=== PATIENT | male | born 1955 | race Caucasian/White ===

== ENCOUNTER 2019-12-20 11:46 | Inpatient (IN) | payer BC, SELFPAY ==
[2019-12-20] VITALS (7 sets, daily range): BP systolic 124–183; BP diastolic 67–90; PULSE 95–110; RESP 18–20; TEMP 37.2–38.5; O2SAT 94–100; BMI 36.8; BMI 36.7
--- NOTE | ~2019-12-20 | US_ITS ---
EXAMINATION:US venous doppler LE BI INDICATION:Swelling. TECHNIQUE: Multiple grayscale, color flow and Doppler images of the bilateral lower extremity deep ve nous systems were obtained and reviewed. COMPARISON:12/20/2019 FINDINGS: The common femoral, superficial femoral and popliteal veins demonstrate normal respiratory variation, augmentation and compressibility. Color flow is also seen within the posterior tibial, pe roneal, greater saphenous and profunda veins. IMPRESSION: 1: No lower extremity deep venous thrombosis. Reviewed, dictated and finalized at location A.
--- NOTE | ~2019-12-20 | US_ITS ---
EXAMINATION: US venous doppler LE RT DATE: 12/20/2019 14:19 INDICATION: Right lower limb pain and swelling TECHNIQUE: Mark scale images without and with compression and Doppler images of the right lower extre mity veins were obtained. COMPARISON: None FINDINGS: The right common femoral vein, profunda femoral vein, femoral vein, popliteal vein, posteri or tibial veins, and greater saphenous vein are patent. Only one of two peroneal veins is identified. IMPRESSION: 1. Only one of two peroneal veins identified which could be due to thrombus or nonvisualization. Reviewed, dictated and finalized at location B.
--- NOTE | 2019-12-20 13:46 | ED.GENADULT ---
HPI - General Adult General Chief complaint: Extremity Injury, Lower Stated complaint: Right Leg Cellulitis, Possible DVT Time Seen by Provider: 12/20/19 12:25 Source: patient and family Mode of arrival: ambulatory Limitations: no limitations History of Present Illness HPI narrative: 64 years old white male, morbidly obese presents with increased pain and redness of the right lower extremity started yesterday. Patient also reports some fever and chills. Patient denies any recent injury. Patient reports history of chronic swelling of the right lower leg for 2 years after injury. History of hypertension, rheumatoid arthritis and Humira, does not smoke or drink. Patient is not on blood thinners. Related Data Home Medications Medication Instructions Recorded Confirmed adalimumab [Humira Pen] mg SUBCUT 12/20/19 amlodipine-benazepril cap 12/20/19 folic acid 12/20/19 hydrochlorothiazide 12/20/19 methotrexate sodium WEEKLY 12/20/19 Allergies Allergy/AdvReac Type Severity Reaction Status Date / Time No Known Allergies Allergy Verified 12/20/19 12:00 Review of Systems Review of Systems: Narrative: CONSTITUTIONAL: Denies fever, chills, or sweats. EYES: Denies visual changes, redness, or discharge. ENT: Denies rhinorrhea, congestion, sore throat, or otalgia. CARDIOVASCULAR: Denies chest pain, palpitations, or edema. RESPIRATORY: Denies cough or dyspnea. GASTROINTESTINAL: Denies abdominal pain, nausea, vomiting, or diarrhea. GENITOURINARY: Denies dysuria or hematuria. SKIN: Denies rash or itching. MUSCULOSKELETAL: Denies back pain, joint pain, or myalgia. NEUROLOGIC: Denies headache, numbness, or weakness. PSYCHIATRIC: Denies anxiety or depression. [facility] Past Medical History Medical History (Updated 12/20/19 @ 13:48 by Christel Vargas MD) Hypertension Rheumatoid arthritis Family History Family History (Updated 11/30/18 @ 07:23 by DOCTOR UNKNOWN) Father Family history of transient ischemic attacks Malignant neoplasm of prostate Family history of diabetes mellitus in first degree relative Family history of heart disease in male family member before age 55 Patient's father is Diabetes mellitus Family history of cardiovascular disease Sibling Patient's sister is in good health Malignant neoplasm of prostate Family history of kidney stones Mother Family history of malignant neoplasm of breast in first degree relative Social History Social History Smoking status: Never smoker Alcohol intake: never Exam Narrative: Exam Narrative: General appearance: Well-developed, well-nourished Skin: Normal color. Right lower leg showed extensive erythema, diffuse tenderness, swelling, warmth Head: Normocephalic, nontraumatic Eyes: Clear conjunctiva ENT: Oropharynx normal, ears normal, nose normal Neck: Supple, nontender Chest and respiratory: Airway patent, no respiratory distress, no accessory muscle use Heart: Regular rate/rhythm Abdomen: Soft, nontender, no organomegaly, quiet bowel sounds Vascular: Normal peripheral pulses, normal capillary refill. 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
[2019-12-20] MEDS: ACETAMINOPHEN 500 MG TABLET 1000 MG PO (14:42)
[2019-12-20 15:09] LABS: Alanine Aminotransferase 45 U/L (4-50); Albumin Level 4.5 g/dL (3.5-5.1); Alkaline Phosphatase 78 U/L (38-126); Anion Gap 8 mmol/L (8-16); Aspartate Amino Transferase 44 U/L (17-59); Blood Urea Nitrogen 22 mg/dL (9-20); Calcium 9.1 mg/dL (8.4-10.2); Carbon Dioxide 27 mmol/L (22-30); Chloride 98 mmol/L (98-107); Estimated CRCL calculation 98 ml/min; Estimated Glomerular Filt Rate > 60; Glucose 129 mg/dL (75-110); Lipase 36 U/L (23-300); Potassium 3.3 mmol/L (3.4-5.0); Sodium 133 mmol/L (137-145)
[2019-12-20 15:10] LABS: Basophils Absolute Auto 0.1 K/mm3 (0.0-0.1); Basophils Percent Auto 0.3 % (0.2-1.2); Immature Granulocyte Absolute 0.08 K/mm3 (0.00-0.031); Immature Granulocyte Percent A 0.5 % (0-0.5); Lymphocytes Absolute Auto 0.35 K/mm3 (0.9-3.2); Lymphocytes Percent Auto 2.3 % (18.3-44.2); Mean Corpuscular HGB Conc 34.8 g/dl (32-36); Mean Corpuscular Hemoglobin 30.3 pg (26-34); Mean Corpuscular Volume 87.1 fl (80-100); Mean Platelet Volume 10.5 fl (7.4-10.4); Monocytes Absolute Auto 0.6 K/mm3 (0.1-0.6); Neutrophils Absolute Auto 14.1 K/mm3 (1.3-6.7); Neutrophils Percent Auto 92.9 % (45.5-73.1); Platelet Count Result 172 k/mm3 (150-375); Red Blood Count 5.28 M/mm3 (4.6-6.20); Red Cell Distribution Width 13.7 % (11.5-14.5); White Blood Count 15.2 K/mm3 (4.5-10.0)
[2019-12-20] MEDS: MORPHINE SULFATE 4 MG/ML INJ IV PUSH ×2 (15:17→18:10)
[2019-12-20] MEDS: ONDANSETRON INJ 4 MG/2 ML VIAL IV PUSH (15:18)
--- NOTE | 2019-12-20 18:05 | PC.NURSE ---
This patient, Michael Deleon, was admitted to [facility] Surg Room 313-01 at . Patient/family oriented to hospital policies and general routines including ID bracelet, bed and alarms, visiting hours, pain management, procedures, bathroom and other care routines, personal items, smoking policy, room service/diet, and visiting hours. Valuables list has been completed. Information on how to activate the Rapid Response Team has been discussed. Patient/Family are encouraged to report perceived risks to care and to ask questions if they do not understand what they are told or what they should do.
--- NOTE | 2019-12-20 19:15 | PM.IMHP ---
H&P: HPI History of Present Illness Date/Time: 12/20/19 19:15 Chief complaint: Right leg swelling and redness Narrative: Michael Deleon is a very pleasant 64-year-old male with rheumatoid arthritis on immunosuppressant therapy and hypertension who presented to the emergency department earlier this today from urgent care for evaluation of right leg swelling and redness. Yesterday afternoon he was at the grocery store when he began feeling dizzy and overall generalized malaise. He went home to lie down and reports having chills and shakes at that time. It sounds as though he received in order to have a COVID swab done today, and he did go have that test done, however when he woke this morning he noticed that his right lower leg was erythematous, edematous, and painful. He describes a burning pain, worse with touch, without any significant alleviating factors. He injured that leg several years ago, and notes that on occasion it will be more edematous when compared to the left, but nothing significant. He has not recently injured that leg and does not believe that he has had any bug or spider bites. 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 He has not had a documented fever. His appetite has been decreased but he denies nausea and vomiting. No diarrhea. He has no history of cellulitis or deep venous thrombosis. No history of multidrug resistant organisms. Review of Systems Review of Systems: Narrative: Twelve systems were reviewed with pertinent positives and negatives as per HPI. No headache. No cold or flu symptoms. He denies cough and shortness of breath. No chest pain or pleuritic pain. He denies vomiting and diarrhea. No dysuria. He takes Humira Q 2 weeks, with his last dose being a week ago . He is on methotrexate Q Thursday. It is not unusual for him to have lower extremity edema, and more recently he has been wearing compression stockings with improvement. Except as documented all other system was reviewed and are negative. [facility] Past Medical History Medical History (Updated 12/20/19 @ 21:25 by Farrah Villalta PA-C) Hypertension Primary osteoarthritis of knees, bilateral Seronegative rheumatoid arthritis Vitamin D deficiency Surgical History Surgical History (Updated 12/20/19 @ 21:16 by Farrah Villalta PA-C) History of left hip replacement History of total bilateral knee replacement History of ventral hernia repair (~04/01/10) Family History Family History Father Family history of transient ischemic attacks Malignant neoplasm of prostate Family history of diabetes mellitus in first degree relative Family history of heart disease in male family member before age 55 Patient's father is Diabetes mellitus Family history of cardiovascular disease Sibling Patient's sister is in good health Malignant neoplasm of prostate Family history of kidney stones Mother Family history of malignant neoplasm of breast in first degree relative Social History Social History (Updated 12/20/19 @ 21:17 by Farrah Villalta PA-C) Social History: Surrogate decision maker: Marycarlos Deleon, spouse. Code status: Full code. Smoking status: Never smoker Alcohol intake: never Substance use: never Additional living arrangements comments: Lives in [place] with his . 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 Gender identity (if verbalized by the patient): Male Spiritual care concerns: No Meds Home Medications and Allergies Home Medications Medication Instructions Recorded Confirmed Type adalimumab [Humira Pen] 40 mg SUBCUT [id number] 12/20/19 12/20/19 History amlodipine-benazepril 1 cap PO DAILY 12/20/19 12/20/19 History folic acid 1 mg PO DAILY 12/20/19 12/20/19 History hydrochlorothiazide 25 mg
[2019-12-20] MEDS: APIXABAN 5 MG TABLET 10 MG PO (21:12)
[2019-12-20] MEDS: ACETAMINOPHEN 325 MG TABLET 650 MG PO (21:55)
[2019-12-20] MEDS: POTASSIUM CHLORIDE 20 MEQ TABLET PO (21:55)
[2019-12-20] MEDS: SODIUM CHLORIDE 0.9% IV 1,000 ML 150 ML IV CONT (21:56)
[2019-12-21] MEDS: MORPHINE SULFATE 2 MG/ML INJ IV PUSH (00:07)
[2019-12-21 05:56] LABS: Hematocrit 42.3 % (42.0-52.0); Hemoglobin 14.2 g/dL (14.0-18.0); Mean Corpuscular HGB Conc 33.6 g/dl (32-36); Mean Corpuscular Hemoglobin 29.8 pg (26-34); Mean Corpuscular Volume 88.9 fl (80-100); Mean Platelet Volume 10.6 fl (7.4-10.4); Platelet Count Result 143 k/mm3 (150-375); Red Blood Count 4.76 M/mm3 (4.6-6.20); Red Cell Distribution Width 13.9 % (11.5-14.5); White Blood Count 11.2 K/mm3 (4.5-10.0)
[2019-12-21 06:00] VITALS: BP 156/84; PULSE 99; RESP 18; TEMP 38.2; O2SAT 96
[2019-12-21 06:09] LABS: Anion Gap 6 mmol/L (8-16); Blood Urea Nitrogen 18 mg/dL (9-20); Calcium 8.3 mg/dL (8.4-10.2); Carbon Dioxide 27 mmol/L (22-30); Chloride 99 mmol/L (98-107); Estimated CRCL calculation 90 ml/min; Estimated Glomerular Filt Rate > 60; Glucose 121 mg/dL (75-110); Potassium 3.6 mmol/L (3.4-5.0); Sodium 132 mmol/L (137-145)
[2019-12-21 06:48] LABS: Band Neutrophils Percent 13 % (0-6); Lymphocytes Absolute Manual 1.23 K/mm3 (1.1-4.5); Monocytes Absolute Manual 0.33 K/mm3 (0.1-0.90); Monocytes Percent Manual 3 % (3-9); Neutrophils Absolute Manual 9.63 K/mm3 (1.3-6.7); Neutrophils Percent Manual 73 % (46-73); Total Cells Counted 100
[2019-12-21 06:49] LABS: Platelet Estimate Adequate (Adequate)
[2019-12-21] MEDS: POTASSIUM CHLORIDE 20 MEQ TABLET 40 MEQ PO (08:17)
[2019-12-21] MEDS: amLODIPine BESYLATE 5 MG TABLET 10 MG PO (08:20)
[2019-12-21] MEDS: APIXABAN 5 MG TABLET 10 MG PO ×2 (08:20→20:51)
[2019-12-21] MEDS: FOLIC ACID 1 MG TABLET PO (08:20)
[2019-12-21] MEDS: lisinopriL 20 MG TABLET PO (08:20)
--- NOTE | 2019-12-21 11:20 | PM.IMPN ---
Progress Note: A&P Assessment and Plan (1) Cellulitis of right leg: Code(s): L03.115 - Cellulitis of right lower limb Status: Acute Assessment and Plan: He has been started on cefazolin for presumed strep cellulitis. Patient thinks erythema/warmth has improved. Febrile today; 100.8 this morning Encourage elevation of affected limb. Asked nursing to outline area of concern Monitor daily (2) Deep venous thrombosis of right peroneal vein: Code(s): I82.451 - Acute embolism and thrombosis of right peroneal vein Status: Acute Assessment and Plan: Venous Doppler ultrasound with possible DVT of 1 of the peroneal veins. This would be a lower leg DVT, which does not necessarily need to be treated with anticoagulation however he has risk factors for such and thus will start Eliquis for now. Ultrasound will be repeated when swelling improves and cellulitis has been treated to confirm presence of DVT. Will have CC davalos Eliquis if DVT confirmed (3) Hypertension: Code(s): I10 - Essential (primary) hypertension Status: Acute Assessment and Plan: Blood pressures were reviewed and they have been as high as 183/85 in the emergency department. 150 sys this morning With pain control is pressures have improved, and will continue to be monitored closely. Continue home antihypertensives (4) Electrolyte abnormality: Code(s): E87.8 - Other disorders of electrolyte and fluid balance, not elsewhere classified Status: Acute Assessment and Plan: Mild hyponatremia and hypokalemia, secondary to poor oral intake in last 24 hours in addition to thiazide diuretic. Na 132 and K 3.6 this morning Monitor daily labs Replace potassium as appropriate Consider further IVF NS if no improvement in Na (5) Seronegative rheumatoid arthritis: Code(s): M06.00 - Rheumatoid arthritis without rheumatoid factor, unspecified site Status: Acute Assessment and Plan: Immunosuppressants on hold in light of active infection. 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 Patient states he feels okay today. His main complaint is lower back pain for which his pain medication helps; willing to start weaning to Tylenol. He notes swelling is maybe slightly worse, but notes redness/warmth has improved some. Otherwise, pain is reasonable in right LE. He requests a stool softener for constipation. No other complaints at the moment. Denies subjective f/c/s, headaches, dizziness, lightheadedness, cp/palpitations, sob/cough, n/v/d/c, abd pain, dysuria, hematuria, cloudy urine, left calf pain/swelling. Review of Systems Review of Systems: All systems reviewed & are unremarkable except as noted in HPI and below Exam Narrative: Exam Narrative: General: Patient resting supine in bed in no acute distress. HEENT: Normocephalic, EOMI, oral mucosa moist. Cardiovascular: Rate and rhythm are regular. No notable murmur, rub, or gallop. Respiratory: Lungs clear to auscultation all carbajal. Non-labored breathing. Abdomen: Soft, non-tender, non-distended, bowel sounds present. Extremities: Peripheral pulses intact. Right lower leg elevated and grossly edematous and warm to touch.Erythema noted from inferior to knee down to right lateral ankle; more erythematous on lateral aspect as it appears more dependant since leg is externally rotated. NVI bilate
[2019-12-21 14:00] VITALS: BP 132/68; PULSE 90; RESP 18; TEMP 37.1; O2SAT 96
[2019-12-21 20:51] VITALS: TEMP 37.7
[2019-12-21] MEDS: ACETAMINOPHEN 325 MG TABLET 650 MG PO (20:51)
[2019-12-21] MEDS: DOCUSATE SODIUM 100 MG CAPSULE PO (20:51)
[2019-12-21 21:51] VITALS: TEMP 37.3
[2019-12-21 22:00] VITALS: BP 150/84; PULSE 76; RESP 18; TEMP 37.7; O2SAT 97
[2019-12-22 03:37] LABS: Basophils Percent Auto 0.4 % (0.2-1.2); Eosinophils Percent Auto 0.4 % (0-4.4); Hematocrit 39.7 % (42.0-52.0); Hemoglobin 13.3 g/dL (14.0-18.0); Immature Granulocyte Absolute 0.03 K/mm3 (0.00-0.031); Immature Granulocyte Percent A 0.4 % (0-0.5); Immature Platelet Fraction Pct 4.1 % (0.9-11.2); Lymphocytes Absolute Auto 1.16 K/mm3 (0.9-3.2); Lymphocytes Percent Auto 16.7 % (18.3-44.2); Mean Corpuscular HGB Conc 33.5 g/dl (32-36); Mean Corpuscular Volume 89.6 fl (80-100); Mean Platelet Volume 10.1 fl (7.4-10.4); Monocytes Percent Auto 14.2 % (2.6-8.5); Neutrophils Absolute Auto 4.7 K/mm3 (1.3-6.7); Neutrophils Percent Auto 67.9 % (45.5-73.1); Platelet Count Result 152 k/mm3 (150-375); Red Blood Count 4.43 M/mm3 (4.6-6.20); Red Cell Distribution Width 13.8 % (11.5-14.5)
[2019-12-22 03:57] LABS: Anion Gap 6 mmol/L (8-16); Blood Urea Nitrogen 17 mg/dL (9-20); Calcium 8.1 mg/dL (8.4-10.2); Carbon Dioxide 28 mmol/L (22-30); Chloride 99 mmol/L (98-107); Estimated CRCL calculation 109 ml/min; Estimated Glomerular Filt Rate > 60; Glucose 109 mg/dL (75-110); Magnesium 2.4 mg/dL (1.6-2.3); Potassium 4.1 mmol/L (3.4-5.0); Sodium 133 mmol/L (137-145)
[2019-12-22 04:14] LABS: Vancomycin Trough < 5.0 ug/mL (10.0-20.0)
[2019-12-22] MEDS: ACETAMINOPHEN 325 MG TABLET 650 MG PO ×2 (05:37→20:40)
[2019-12-22 05:55] VITALS: BP 147/80; PULSE 78; RESP 18; TEMP 36.7; O2SAT 97
[2019-12-22] MEDS: amLODIPine BESYLATE 5 MG TABLET 10 MG PO (08:09)
[2019-12-22] MEDS: DOCUSATE SODIUM 100 MG CAPSULE PO (08:10)
[2019-12-22] MEDS: APIXABAN 5 MG TABLET 10 MG PO ×2 (08:11→20:39)
[2019-12-22] MEDS: FOLIC ACID 1 MG TABLET PO (08:11)
[2019-12-22] MEDS: lisinopriL 20 MG TABLET PO (08:11)
[2019-12-22 14:00] VITALS: BP 139/69; PULSE 72; RESP 16; TEMP 36.8; O2SAT 96
--- NOTE | 2019-12-22 14:19 | PC.NURSE ---
On 12/22/19, the student, [Summer Maldonado ], provided care and completed [facility] documentation on this patient. I have reviewed the student's documentation and agree with the findings.
--- NOTE | 2019-12-22 14:51 | PM.IMPN ---
Progress Note: A&P Assessment and Plan (1) Cellulitis of right leg: Code(s): L03.115 - Cellulitis of right lower limb Status: Acute Assessment and Plan: He has been started on cefazolin for presumed strep cellulitis. Patient thinks erythema/warmth has improved. Febrile of 99.9 last night; afebrile since. WBC WNL today. Clinically has improved aside from erythema in the area of concern Encourage elevation of affected limb. Continue IV ancef for now Will add PO doxycycline for broader coverage Will add one time dose of 20 mg lasix now; will resume home HCTZ tomorrow Monitor daily (2) Deep venous thrombosis of right peroneal vein: Code(s): I82.451 - Acute embolism and thrombosis of right peroneal vein Status: Acute Assessment and Plan: Venous Doppler ultrasound with possible DVT of 1 of the peroneal veins. This would be a lower leg DVT, which does not necessarily need to be treated with anticoagulation however he has risk factors for such and thus will start Eliquis for now. Ultrasound will be repeated when swelling improves and cellulitis has been treated to confirm presence of DVT. Will consider repeating tomorrow Will have CC davalos Eliquis if DVT confirmed (3) Hypertension: Code(s): I10 - Essential (primary) hypertension Status: Acute Assessment and Plan: Blood pressures were reviewed and they have been as high as 183/85 in the emergency department. 130 sys this afternoon Continue home antihypertensives; resume HCTZ tomorrow (4) Electrolyte abnormality: Code(s): E87.8 - Other disorders of electrolyte and fluid balance, not elsewhere classified Status: Acute Assessment and Plan: Mild hyponatremia and hypokalemia, secondary to poor oral intake in last 24 hours in addition to thiazide diuretic. Na 133 and K 4.1 this morning Monitor daily labs Replace potassium as appropriate Consider further IVF NS (5) Seronegative rheumatoid arthritis: Code(s): M06.00 - Rheumatoid arthritis without rheumatoid factor, unspecified site Status: Acute Assessment and Plan: Immunosuppressants on hold in light of active infection. 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 Patient states he feels much better today. He thinks his swelling has improved. His is in room and she thinks the redness is slightly improved. His back pain has improved. He notes having sweats last night, but since, has had no subjective fevers/chills/sweats. His LE pain has improved as well. No other complaints at the moment. Denies subjective f/c/s, headaches, dizziness, lightheadedness, cp/palpitations, sob/cough, n/v/d/c, abd pain, dysuria, hematuria, cloudy urine, left calf pain/swelling. Review of Systems Review of Systems: All systems reviewed & are unremarkable except as noted in HPI and below Exam Narrative: Exam Narrative: General: Patient resting supine in bed in no acute distress. in room visiting HEENT: Normocephalic, EOMI, oral mucosa moist. Cardiovascular: Rate and rhythm are regular. No notable murmur, rub, or gallop. Respiratory: Lungs clear to auscultation all carbajal. Non-labored breathing. Abdomen: Soft, non-tender, non-distended, bowel sounds present. Extremities: Peripheral pulses intact. Right lower leg elevated and grossly edematous an
[2019-12-22] MEDS: DOXYCYCLINE HYCLATE 100 MG TABLET PO ×2 (15:16→20:39)
[2019-12-22] MEDS: FUROSEMIDE 20 MG TABLET PO (15:16)
[2019-12-22 20:00] VITALS: PULSE 68; RESP 18; O2SAT 97
[2019-12-22 22:00] VITALS: BP 143/78; PULSE 68; RESP 18; TEMP 36.8; O2SAT 97
[2019-12-23 06:00] VITALS: BP 145/81; PULSE 63; RESP 18; TEMP 36.4; O2SAT 98
[2019-12-23 06:00] LABS: Basophils Absolute Auto 0.1 K/mm3 (0.0-0.1); Basophils Percent Auto 1.1 % (0.2-1.2); Eosinophils Absolute Auto 0.2 K/mm3 (0-0.3); Eosinophils Percent Auto 3.4 % (0-4.4); Hematocrit 38.8 % (42.0-52.0); Hemoglobin 13.1 g/dL (14.0-18.0); Immature Granulocyte Absolute 0.02 K/mm3 (0.00-0.031); Immature Granulocyte Percent A 0.5 % (0-0.5); Lymphocytes Percent Auto 27.1 % (18.3-44.2); Mean Corpuscular HGB Conc 33.8 g/dl (32-36); Mean Corpuscular Hemoglobin 29.2 pg (26-34); Mean Corpuscular Volume 86.6 fl (80-100); Mean Platelet Volume 10.1 fl (7.4-10.4); Monocytes Absolute Auto 0.7 K/mm3 (0.1-0.6); Monocytes Percent Auto 14.9 % (2.6-8.5); Neutrophils Absolute Auto 2.3 K/mm3 (1.3-6.7); Platelet Count Result 147 k/mm3 (150-375); Red Blood Count 4.48 M/mm3 (4.6-6.20); Red Cell Distribution Width 13.6 % (11.5-14.5); White Blood Count 4.4 K/mm3 (4.5-10.0)
[2019-12-23 06:20] LABS: Anion Gap 7 mmol/L (8-16); Blood Urea Nitrogen 17 mg/dL (9-20); Calcium 8.2 mg/dL (8.4-10.2); Carbon Dioxide 25 mmol/L (22-30); Chloride 104 mmol/L (98-107); Estimated CRCL calculation 121 ml/min; Estimated Glomerular Filt Rate > 60; Glucose 119 mg/dL (75-110); Magnesium 2.3 mg/dL (1.6-2.3); Potassium 3.5 mmol/L (3.4-5.0); Sodium 136 mmol/L (137-145)
[2019-12-23] MEDS: amLODIPine BESYLATE 5 MG TABLET 10 MG PO (08:30)
[2019-12-23] MEDS: FOLIC ACID 1 MG TABLET PO (08:30)
[2019-12-23] MEDS: APIXABAN 5 MG TABLET 10 MG PO (08:30)
[2019-12-23] MEDS: POTASSIUM CHLORIDE 20 MEQ TABLET 40 MEQ PO (08:30)
[2019-12-23] MEDS: lisinopriL 20 MG TABLET PO (08:30)
[2019-12-23] MEDS: DOXYCYCLINE HYCLATE 100 MG TABLET PO ×2 (08:30→21:14)
[2019-12-23] MEDS: hydroCHLOROthiazide 25 MG TABLET PO (08:31)
--- NOTE | 2019-12-23 08:34 | PM.IMPN ---
Progress Note: A&P Assessment and Plan (1) Cellulitis of right leg: Code(s): L03.115 - Cellulitis of right lower limb Status: Acute Assessment and Plan: Initially, had been started on cefazolin for presumed strep cellulitis. With minimal improvement yesterday, doxycycline added for broader coverage. Exam reveals improved cellulitis. afebrile overnight. WBC shows mild leukopenia. Clinically has improved again today. Encourage elevation of affected limb. Continue IV ancef and PO doxycycline Continue home HCTZ to help with edema Monitor daily (2) Deep venous thrombosis of right peroneal vein: Code(s): I82.451 - Acute embolism and thrombosis of right peroneal vein Status: Acute Assessment and Plan: Venous Doppler ultrasound with possible DVT of 1 of the peroneal veins. This would be a lower leg DVT, which does not necessarily need to be treated with anticoagulation however he has risk factors for such and thus will start Eliquis for now. Will do b/l LE venous doppler for reevaluation of right LE venous system Will have CC davalos Eliquis if DVT confirmed (3) Hypertension: Code(s): I10 - Essential (primary) hypertension Status: Acute Assessment and Plan: Blood pressures were reviewed and they have been as high as 183/85 in the emergency department. 140 sys this morning Continue home antihypertensives Monitor (4) Electrolyte abnormality: Code(s): E87.8 - Other disorders of electrolyte and fluid balance, not elsewhere classified Status: Acute Assessment and Plan: Mild hyponatremia and hypokalemia, secondary to poor oral intake in last 24 hours in addition to thiazide diuretic. Na 136 and K 3.5 this morning; replaced K Monitor daily labs Replace potassium as appropriate Consider further IVF NS (5) Seronegative rheumatoid arthritis: Code(s): M06.00 - Rheumatoid arthritis without rheumatoid factor, unspecified site Status: Acute Assessment and Plan: Immunosuppressants on hold in light of active infection. 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 Patient states he feels well today; he thinks swelling and redness has improved. Pain improved as well. No other complaints at the moment. Denies subjective f/c/s, cp/palpitations, sob/cough, n/v/d/c, abd pain, left calf pain/swelling. Review of Systems Review of Systems: All systems reviewed & are unremarkable except as noted in HPI and below Exam Narrative: Exam Narrative: General: Patient sitting upright in bed in no acute distress. nursing in room HEENT: Normocephalic, EOMI, oral mucosa moist. Cardiovascular: Rate and rhythm are regular. No notable murmur, rub, or gallop. Respiratory: Lungs clear to auscultation anterolateral lung carbajal. Non-labored breathing. Abdomen: Soft, non-tender, non-distended, bowel sounds present. Extremities: Peripheral pulses intact. Right lower leg elevated and grossly edematous and warm to touch. Erythema noted from inferior to knee down to right lateral ankle. Compared to yesterday, erythema has appeared to have improved overnight; warmth and swelling have improved slightly as well. NVI bilaterally Neuro: No focal neurological deficits. Speech is clear. Objective Data Vital Signs Vital Signs: Last Vital Signs Temp 97.6 F 12/23/19 06:00
[2019-12-23 14:00] VITALS: BP 135/68; PULSE 74; RESP 16; TEMP 36.8; O2SAT 96
[2019-12-23] MEDS: ACETAMINOPHEN 325 MG TABLET 650 MG PO (21:14)
[2019-12-23 22:00] VITALS: BP 146/73; PULSE 96; RESP 18; TEMP 36.4; O2SAT 92
[2019-12-24 06:00] VITALS: BP 143/74; PULSE 60; RESP 18; TEMP 36.2; O2SAT 100
[2019-12-24 06:40] LABS: Basophils Absolute Auto 0.1 K/mm3 (0.0-0.1); Eosinophils Absolute Auto 0.2 K/mm3 (0-0.3); Eosinophils Percent Auto 4.8 % (0-4.4); Hematocrit 39.2 % (42.0-52.0); Hemoglobin 13.2 g/dL (14.0-18.0); Immature Granulocyte Absolute 0.03 K/mm3 (0.00-0.031); Immature Granulocyte Percent A 0.6 % (0-0.5); Lymphocytes Absolute Auto 1.04 K/mm3 (0.9-3.2); Lymphocytes Percent Auto 21.6 % (18.3-44.2); Mean Corpuscular HGB Conc 33.7 g/dl (32-36); Mean Corpuscular Hemoglobin 29.3 pg (26-34); Mean Corpuscular Volume 86.9 fl (80-100); Mean Platelet Volume 10.4 fl (7.4-10.4); Monocytes Absolute Auto 0.7 K/mm3 (0.1-0.6); Monocytes Percent Auto 13.5 % (2.6-8.5); Neutrophils Absolute Auto 2.8 K/mm3 (1.3-6.7); Neutrophils Percent Auto 58.5 % (45.5-73.1); Platelet Count Result 179 k/mm3 (150-375); Red Blood Count 4.51 M/mm3 (4.6-6.20); Red Cell Distribution Width 13.7 % (11.5-14.5); White Blood Count 4.8 K/mm3 (4.5-10.0)
[2019-12-24 07:20] LABS: Anion Gap 8 mmol/L (8-16); Blood Urea Nitrogen 15 mg/dL (9-20); Calcium 8.4 mg/dL (8.4-10.2); Carbon Dioxide 24 mmol/L (22-30); Chloride 105 mmol/L (98-107); Estimated CRCL calculation 137 ml/min; Estimated Glomerular Filt Rate > 60; Glucose 106 mg/dL (75-110); Magnesium 2.1 mg/dL (1.6-2.3); Potassium 3.6 mmol/L (3.4-5.0); Sodium 137 mmol/L (137-145)
[2019-12-24] MEDS: amLODIPine BESYLATE 5 MG TABLET 10 MG PO (08:42)
[2019-12-24] MEDS: POTASSIUM CHLORIDE 20 MEQ TABLET PO (08:42)
[2019-12-24] MEDS: FOLIC ACID 1 MG TABLET PO (08:42)
[2019-12-24] MEDS: ENOXAPARIN 40 MG/0.4 ML SYRINGE SUB-Q (08:42)
[2019-12-24] MEDS: DOXYCYCLINE HYCLATE 100 MG TABLET PO ×2 (08:42→20:46)
[2019-12-24] MEDS: lisinopriL 20 MG TABLET PO (08:43)
[2019-12-24] MEDS: hydroCHLOROthiazide 25 MG TABLET PO (08:43)
--- NOTE | 2019-12-24 10:03 | PM.IMPN ---
Progress Note: A&P Assessment and Plan (1) Cellulitis of right leg: Code(s): L03.115 - Cellulitis of right lower limb Status: Acute Assessment and Plan: Initially, had been started on cefazolin for presumed strep cellulitis. Doxycycline added later for broader coverage given slow improvement. Exam reveals improved cellulitis again today. afebrile overnight. WBC shows mild leukopenia. Clinically has improved again today. Encourage elevation of affected limb. Continue IV ancef and PO doxycycline Continue home HCTZ to help with edema; IV lasix to aid with improving edema and BP Monitor daily Consider Home in 1-2 days if showing continued clinical improvement (2) Deep venous thrombosis of right peroneal vein: Code(s): I82.451 - Acute embolism and thrombosis of right peroneal vein Status: Ruled-out Assessment and Plan: Initial Venous Doppler ultrasound with possible DVT of 1 of the peroneal veins. Repeat VD US were negative for DVT b/l. Initially was started on Eliquis for treatment; this was discontinued yesterday. No further work up at this moment Lovenox for DVT ppx (3) Hypertension: Code(s): I10 - Essential (primary) hypertension Status: Acute Assessment and Plan: Blood pressures were reviewed and they have been as high as 183/85 in the emergency department. 140 sys this morning Continue home antihypertensives Will give 1 dose of IV lasix to improve BP and LE edema Monitor (4) Electrolyte abnormality: Code(s): E87.8 - Other disorders of electrolyte and fluid balance, not elsewhere classified Status: Acute Assessment and Plan: Mild hyponatremia and hypokalemia, secondary to poor oral intake in previous 24 hours prior to arrival in addition to thiazide diuretic. Na 137 and K 3.6 this morning; replaced K Monitor daily labs Replace potassium as appropriate (5) Seronegative rheumatoid arthritis: Code(s): M06.00 - Rheumatoid arthritis without rheumatoid factor, unspecified site Status: Acute Assessment and Plan: Immunosuppressants on hold in light of active infection. Will have him hold these at least until he finishes course of antibiotics or until further recommendation from his surveillance director or PCP Subjective Date/time seen: 12/24/19 10:03 Interval history: Patient is a 64 yo M with history of rheumatoid arthritis on immunosuppressant therapy and hypertension who is here for treatment of right lower leg cellulitis. Patient states he feels well again today; he thinks redness has improved. Pain is reasonable, only hurting briefly when he stands up, then resolves. No other complaints at the moment. Denies subjective f/c/s, cp/palpitations, sob/cough, n/v/d/c, abd pain, left calf pain/swelling. Review of Systems Review of Systems: All systems reviewed & are unremarkable except as noted in HPI and below Exam Narrative: Exam Narrative: General: Patient sitting upright in bed in no acute distress HEENT: Normocephalic, EOMI, oral mucosa moist. Cardiovascular: Rate and rhythm are regular. No notable murmur, rub, or gallop. Respiratory: Lungs clear to auscultation anterolateral lung carbajal. Non-labored breathing. Abdomen: Soft, non-tender, non-distended, bowel sounds present. Extremities: Peripheral pulses intact. Right lower leg elevated on pillows. Grossly edematous, erythematous, and warm to touch, with interval improvement in above findings compared to yesterday. NVI bilaterally Neuro: No focal neurological deficits. Speech is clear. Objective Data Vital Signs Vital Signs: Vital Signs - 24 hr 12/23/19 14:00 12/23/19 22:00 12/24/19 06:00 Temperature 98
[2019-12-24] MEDS: FUROSEMIDE INJ 40 MG/4 ML VIAL 20 MG IV PUSH (11:32)
[2019-12-24 14:00] VITALS: BP 144/80; PULSE 77; RESP 18; TEMP 36.3; O2SAT 97
[2019-12-24 22:00] VITALS: BP 142/81; PULSE 71; RESP 16; TEMP 36.3; O2SAT 97
[2019-12-25] MEDS: ACETAMINOPHEN 325 MG TABLET 650 MG PO (01:53)
[2019-12-25 06:00] VITALS: BP 163/89; PULSE 64; RESP 18; TEMP 36.3; O2SAT 98
[2019-12-25 07:16] LABS: Basophils Absolute Auto 0.1 K/mm3 (0.0-0.1); Eosinophils Absolute Auto 0.2 K/mm3 (0-0.3); Eosinophils Percent Auto 3.4 % (0-4.4); Hematocrit 40.1 % (42.0-52.0); Hemoglobin 13.5 g/dL (14.0-18.0); Immature Granulocyte Absolute 0.09 K/mm3 (0.00-0.031); Immature Granulocyte Percent A 1.5 % (0-0.5); Lymphocytes Percent Auto 25.8 % (18.3-44.2); Mean Corpuscular HGB Conc 33.7 g/dl (32-36); Mean Corpuscular Hemoglobin 29.2 pg (26-34); Mean Corpuscular Volume 86.6 fl (80-100); Monocytes Absolute Auto 0.6 K/mm3 (0.1-0.6); Monocytes Percent Auto 10.2 % (2.6-8.5); Neutrophils Absolute Auto 3.6 K/mm3 (1.3-6.7); Neutrophils Percent Auto 58.1 % (45.5-73.1); Platelet Count Result 210 k/mm3 (150-375); Red Blood Count 4.63 M/mm3 (4.6-6.20); Red Cell Distribution Width 13.2 % (11.5-14.5); White Blood Count 6.2 K/mm3 (4.5-10.0)
[2019-12-25 07:30] LABS: Anion Gap 7 mmol/L (8-16); Blood Urea Nitrogen 15 mg/dL (9-20); Calcium 8.8 mg/dL (8.4-10.2); Carbon Dioxide 26 mmol/L (22-30); Chloride 102 mmol/L (98-107); Estimated CRCL calculation 121 ml/min; Estimated Glomerular Filt Rate > 60; Glucose 108 mg/dL (75-110); Magnesium 2.1 mg/dL (1.6-2.3); Potassium 3.8 mmol/L (3.4-5.0); Sodium 135 mmol/L (137-145)
[2019-12-25] MEDS: DOXYCYCLINE HYCLATE 100 MG TABLET PO (08:44)
--- NOTE | 2019-12-25 08:50 | PC.NURSE ---
Patient refusing medications this morning due to impending discharge. Patient given doxycycline
--- NOTE | 2019-12-25 08:51 | PM.DS ---
DS: Admitting Diagnosis Admitting Diagnosis Admitting Diagnosis: R Leg Cellulitis,Questionable Deep Vein Thrombosis DS: Discharge Diagnosis Discharge Diagnosis (1) Cellulitis of right leg: Code(s): L03.115 - Cellulitis of right lower limb Status: Acute Assessment and Plan: Initially, had been started on cefazolin for presumed strep cellulitis. Doxycycline added later for broader coverage given slow improvement. Exam reveals improved cellulitis again today. afebrile since 12/20. WBC WNL today. Clinically has improved again today. Encouraged elevation of affected limb. Will do PO Keflex and doxycycline through 01/01 given slow improvement with instructions to visit PCP to see if he can discontinue therapy sooner Monitor daily D/c home today (2) Deep venous thrombosis of right peroneal vein: Code(s): I82.451 - Acute embolism and thrombosis of right peroneal vein Status: Ruled-out Assessment and Plan: Initial Venous Doppler ultrasound with possible DVT of 1 of the peroneal veins. Repeat VD US were negative for DVT b/l. Initially was started on Eliquis for treatment; this was discontinued after negative repeat VD No further work up at this moment Lovenox for DVT ppx during stay (3) Hypertension: Code(s): I10 - Essential (primary) hypertension Status: Acute Assessment and Plan: Blood pressures were reviewed and they have been as high as 183/85 in the emergency department. 160 sys this morning Continue home antihypertensives Monitor (4) Electrolyte abnormality: Code(s): E87.8 - Other disorders of electrolyte and fluid balance, not elsewhere classified Status: Acute Assessment and Plan: Mild hyponatremia and hypokalemia, secondary to poor oral intake in previous 24 hours prior to arrival in addition to thiazide diuretic. Na 135 and K 3.8 this morning F/u with PCP (5) Seronegative rheumatoid arthritis: Code(s): M06.00 - Rheumatoid arthritis without rheumatoid factor, unspecified site Status: Acute Assessment and Plan: Immunosuppressants on hold in light of active infection. 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 While in the ED, patient was found to have a grossly edematous/erythematous right lower leg with leukocytosis suggestive of right lower extremity cellulitis. Venous doppler of that extremity showed a questionable DVT of 1 of 2 peroneal veins as it was not well visualized. Patient admitted under this setting. Please see H&P for further details. Presenting VS: Temp Pulse Resp BP Pulse Ox 99.3 F 95 18 183/85 H 100 12/20/19 11:48 12/20/19 11:48 12/20/19 11:48 12/20/19 11:48 12/20/19 11:48 Presenting Pertinent labs: WBC 15.2k, Na 133, K 3.3 Micro: BCx reveals NGTD x 2 after 5 days Imaging: Venous Doppler Study 12/20/19 14:20 IMPRESSION: 1. Only one of two peroneal veins identified which could be due to thrombus or nonvisualization. Venous Doppler Study 12/23/19 13:40 IMPRESSION: 1: No lower extremity deep venous thrombosis. ECG: none Patient was admitted to the hospitalist service for further evaluation. Once admitted to the floor, patient was started on IV Ancef. This was continued throughout her stay. His RA medications were placed on
== END 2019-12-25 10:02 | disposition home or self-care (01) | DRG 603 ==
LOC: ANHED 16:21 → ANH3MEDSUR 16:42
PROVIDERS: Physician Assistant; Admitting Provider Family Medicine; Emergency Provider Emergency Medicine; PCP Internal Medicine; Visit Provider Family Medicine
DX: L03.115 Cellulitis of right lower limb (principal); E87.1 Hypo-osmolality and hyponatremia; M06.00 Rheumatoid arthritis without rheumatoid factor, unspecified site; I10 Essential (primary) hypertension; E87.6 Hypokalemia; E55.9 Vitamin D deficiency, unspecified; Z96.653 Presence of artificial knee joint, bilateral; Z96.642 Presence of left artificial hip joint
CPT/HCPCS: 36415; 80048; 80053; 80202; 83690; 83735; 85025; 85055; 87040; 93970; 93971; 96361; 96365; 96366; 96374; 96375; 96376; 99285; A9270; G0378; J0690; J1650; J1940; J2270; J2405; J3370; J7030